=== PATIENT | female | born 1995 | race African-American/Black ===

== ENCOUNTER → 2016-07-04 | Outpatient (CLI) | payer BC, OTHER ==
--- NOTE | ~2016-07-04 | CR58 ---
[facility] A Service of [facility] & [facility] RADIOLOGY TEXT RESULTS PATIENT: HALEY LARES LOCATION: [facility] : [birth year] UNIT #: [id number] AGE: [address]: OLIVIA ABRAMS APRN SEX: F ORDER DR: [id number] [facility] [address] [place], [place] [address] [id number] O MR#: [id number] Acc #: [id number] NAME: HALEY LARES : 1995 SEX: F STUDY DATE/TIME: 07/04/2016 20:33 UNIT: [facility] ROOM: STUDY DESCRIPTION: CR Cervical Spine 2 or 3 Views Attending Physician: Olivia Abrams Ordering Physician: Physician Non-Staff Primary Care Physician: Olivia Abrams MEDICAL IMAGING REPORT This report is preliminary unless electronic signature is present EXAM Cervical spine 3 views 07/04/2016 HISTORY Neck pain posteriorly with left upper extremity radiculopathy symptoms for 1 year. No known injury. FINDINGS 3 views of the cervical spine show satisfactory preservation of the cervical lordosis. The cervical soft tissues are normal. All anterior and posterior elements in the cervical area are anatomically normal without identifiable fracture, dislocation, malignant lytic or sclerotic change, or arthritis. There is no congenital defect apparent. IMPRESSION Normal cervical spine. Dictated by... Bay Iniguez M.D. THIS IS AN ELECTRONICALLY VERIFIED REPORT aBy Iniguez M.D. at 07/06/2016 8:29 AM CLAUDIA/abner TD: 07/05/2016 10:37 JOB #: [id number] MEDICAL IMAGING REPORT Page 1 of 1 COPY
== END | disposition home or self-care (01) ==
LOC: CRAD 20:16
DX: M54.2 Cervicalgia (principal)
CPT/HCPCS: 72040